=== PATIENT | female | born 1975 | race Caucasian/White ===

== ENCOUNTER 2019-01-05 20:19 | Emergency (ER) | payer BC ==
[~2019-01-05] VITALS: Ht 165.1 cm; Wt 63.5 kg
[2019-01-05 20:26] VITALS: BP 143/97
--- NOTE | 2019-01-05 20:29 | NUR ---
TO LOBBY A/W BED, VSBenjamin , DAISY, QUE NOTED
--- NOTE | 2019-01-05 20:36 | NUR ---
EKG PERFORMED IN TRIAGE ROOM WITH FAMILY MEMBER PRESENT
--- NOTE | 2019-01-05 20:53 | NUR ---
PT TAKEN TO BED 5
--- NOTE | 2019-01-05 21:00 | NUR ---
PT C/O CONGESTION AND NONPRODUCTIVE COUGH X 1 WEEK. LUNG SOUNDS WHEEZING BILAT ON INSPIRATION AND EXPIRATION THROUGHOUT. RESPIRATIONS EVEN AND UNLABORED. STATES SHE HAS CONGESTION/TIGHTNESS IN CHEST ON INSPIRATION 5/10, NONRADIATING. PATIENT POSITIONED FOR COMFORT; HOB ELEVATED; BEDRAILS UP X1; BED DOWN, LOCKED.
--- NOTE | 2019-01-05 21:17 | NUR ---
REPORT TO DAR HERMAN TRANSFER OF CARE AT THIS TIME
--- NOTE | 2019-01-05 22:02 | NUR ---
Dr. Gerard evaluating patient at bedside.
--- NOTE | 2019-01-05 22:08 | NUR ---
PT ACTING APPROPRIATLY, PT ON COAL WASHER TENDER. PAIN 4/10 AT THIS TIME. FAMILY AT BEDSIDE. SAFETY PRECAUTIONS IN PLACE.
--- NOTE | 2019-01-05 22:10 | NUR ---
X-RAY AT BEDSIDE.
[2019-01-05 22:36] VITALS: BP 147/98
--- NOTE | 2019-01-05 22:36 | NUR ---
Patient discharged with v/s stable. Written and verbal after care instructions given and explained. Patient alert, oriented and verbalized understanding of instructions. Ambulatory with steady gait. All questions addressed prior to discharge. ID band removed. Patient advised to follow up with PMD. Rx of AZITHROMYCIN, PROMETHAZINE given. Patient educated on indication of medication including possible reaction and side effects. Opportunity to ask questions provided and answered.
== END 2019-01-05 22:36 | disposition home or self-care (01) ==
LOC: MED 20:19
DX: J06.9 Acute upper respiratory infection, unspecified (principal); R07.9 Chest pain, unspecified
CPT/HCPCS: 71045; 93005; 99283; Q0092